=== PATIENT | male | born 1985 ===

== ENCOUNTER 2025-05-15 06:09 | Day surgery (SDC) | payer OTHER, SELFPAY ==
[2025-05-11 11:24] LABS: Hematocrit 45.0 % (39.0-52.0); Hemoglobin 15.1 g/dL (13.0-18.0); Mean Corp Hgb Conc. 33.6 g/dL (33.0-37.0); Mean Corpuscular Volume 82.4 fL (80.0-94.0); Platelet Count 216 10^3/uL (130-400); Red Cell Dist. Width 17.3 % (11.5-14.5)
[2025-05-11 11:38] LABS: Iron 103 ug/dl (49-181)
[2025-05-15] VITALS (17 sets, daily range): BP systolic 102–137; BP diastolic 60–93; BMI 32.1
[2025-05-15] MEDS: TYLENOL 1000 MG PO (09:44)
[2025-05-15] MEDS: NORMOSOL-R/PLASMALYTE-A 1000 IV (09:49)
[2025-05-15] MEDS: SUBLIMAZE 50 MCG IV ×2 (13:31→13:43)
[2025-05-15] MEDS: MOTRIN 600 MG PO (15:00)
== END 2025-05-15 17:06 | disposition home or self-care (01) ==
LOC: SDS 06:09
PROVIDERS: ATTENDING PHYSICIAN Surgery; FAMILY PHYSICIAN Student in an Organized Health Care Education/Training Program
DX: K64.8 Other hemorrhoids (principal); K60.1 Chronic anal fissure; K64.4 Residual hemorrhoidal skin tags
CPT/HCPCS: 46260; 36415; 83540; 85027